=== PATIENT | male | born 1965 | race Caucasian/White ===

== ENCOUNTER 2016-11-22 22:03 | Emergency (ER) | payer OTHER ==
[~2016-11-22] VITALS: Ht 182.9 cm; Wt 65.9 kg
[2016-11-22 22:07] VITALS: BP 135/79; PULSE 96; RESP 16; O2SAT 100
--- NOTE | 2016-11-22 22:57 | ED.REPORT ---
HPI-Rash / Abscess Date of Service Nov 22, 2016 ED Provider: Cesar Key MD Patient is a 51 year old male with a history of asthma, dyshidrotic eczema, hepatitis C, and recent right arm flexor tendon reattachment surgery who presents to the ED complaining of increased patches of dyshidrotic eczema over the past 2 days. The patient reports having several patches of eczema present at all times, but that the quantity has increased over the past 2 days. The patient states that the rash is present on his hands and feet. He states that the rash is painful but he denies itching. He only developed this condition when he moved to the area 2 years ago. The patient reports putting betamethasone dipropionate lotion inside gloves and socks at night, which he sleeps in. The patient has been seen by Dr. Ander Lau, dermatology, at the [facility]. The patient is concerned that the flare is associated with an infection of his recent surgery. Nursing Notes Stated Complaint: ITCHING, BURNING, SORES ON BILAT FEET AND HANDS Chief Complaint: Skin Rash/Abscess Nursing Notes Reviewed: Yes Allergies: Uncoded Allergies: SHELLFISH (Allergy, Severe, Anaphylaxis, 11/22/16) Scheduled Clobetasol Propionate (Clobetasol Propionate) 15 Gm Cream..g. 15 GM TP BID Loratadine (Claritin) 10 Mg Capsule 10 MG PO DAILY General Time Seen by MD: 22:56 Chief Complaint Rash Hx Obtained From: Patient Arrived By: Walk-in Onset Occurred: 2 days ago Symptom Duration: Since onset Location: : Foot: Hand Quality: Painful Severity: Current: Moderate Severity: Maximum: Moderate Recent Healthcare: No recent doctor visit, No recent hospitalization Similar Sx Previous: No Past Medical History Past Medical History hepatitis C dyshidrotic eczema Reports: Asthma Past Surgical History right arm surgery - flexor tendon reattachment Smoking History Unknown if Ever Smoker Social History Other Social History: Good social support, Local resident Ambulatory Status Independent Review of Systems Musculoskeletal: Reports: Extremity pain, Denies: Extremity swelling Skin: Reports Rash, Denies Itching Complete sys rev & neg: except as marked. Physical Exam Initial Vital Signs Vital Signs (First) Date Time Temp Pulse Resp B/P Pulse Ox O2 Delivery O2 Flow Rate FiO2 11/22/16 22:07 36.0 96 16 135/79 100 Room Air Initial VS: Reviewed Head / Eyes: Atraumatic, Normocephalic, PERRL ENT: Conjunctiva normal, No scleral icterus Neck: Supple, Full range of motion Neurologic: Alert, Oriented, Nonfocal Psychiatric: Mood/affect normal, Behavior normal, Normal thought content General/Constitutional: Awake, Alert, No acute distress Skin: Warm, Dry Rash / Lesion Notes: Blistering cutaneous eczema along the margins and hands and feet, palmar dorsal margins, typical of dyshidrotic eczema. No redness surrounding. Hyperkeratosis, thick skin, of the bilateral hands. Head / Eyes: Atraumatic, Normocephalic, PERRL ENT: Airway patent Respiratory / Chest: No respiratory distress, No wheezing, No stridor Cardiovascular: Heart rate NL, Cap refill not delayed, Peripheral circulation NL Upper Extremity / MS: No erythema, Neurologic intact, Vascular intact long arm cast, right, not taken down Re-Eval/Medical Decision Med Decision/Clinical Course 51-year-old with fairly severe dyshidrotic eczema. No evidence of superinfection. He has some maceration between his fourth and fifth toes that may be developing a local fungal infection. Begun with clobetasol cream and moisturizers. Information from [employer] provided. Follow up with dermatology. Discharged in stable condition. Re-Evaluation/Progress : Time of Eval: 23:45 Patient Status: Condition improved Re-Evaluation/Progress Note: Patient understands and agrees with the plan to be discharged home. He will be given a new cream to try to for his eczema. Discharge instructions and follow-up with dermatology discussed. All questions were addressed. Return to the ED warnings given. Counseled Regarding: Diagnosis, Need for follow-up, When/why to return to ED Discharge & Departure Impression: Primary Impression: Dyshidrotic eczema Disposition: Home Discharge Condition All VS Reviewed: Yes Condition: Stable Patient Instructions: Atopic Dermatitis (ED) Additional Instructions: Begin clobetasol cream twice daily. Follow that with CeraVe moisturizing cream. When ever you wash your hands, rinse them very thoroughly, pat them dry and then apply CeraVe cream. Use a very mild soap, and avoid stripping the fats from your skin. Neutrogena or Pears or Cetaphyl are gentle. Use gloves whenever handling chemicals or other materials which can damage your skin. Keep your feet dry. Change socks frequently and powder them if needed. 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 Caio Attestation Portions of this note were transcribed by Taty Prasad. I, Dr. Key personally performed the history, physical exam and medical decision-making; I reviewed and confirmed the accuracy of the information in the transcribed note. Signed by: Caio Whitman, 11/23/2016 0010 Cesar Key MD Nov 22, 2016 22:57 Taty Prasad Nov 22, 2016 23:08
[2016-11-22] MEDS ORDERED: LORA10CA PO (23:24)
[2016-11-22] MEDS ORDERED: CLOB15CR2 TP (23:24)
[2016-11-22 23:47] VITALS: BP 103/51; PULSE 89; O2SAT 96
== END 2016-11-22 23:48 | disposition home or self-care (01) ==
LOC: SED 22:03
DX: L30.1 Dyshidrosis [pompholyx] (principal); J45.909 Unspecified asthma, uncomplicated